=== PATIENT | female | born 1975 | race Caucasian/White ===

== ENCOUNTER → 2017-02-08 | Outpatient (CLI) | payer OTHER ==
[~2017-02-08] MED LIST: FASTIN30 MG PO; NUVARING VAG RING VG; PERCOCET 325 MG1 TA2 PO; TYLENOL 325MG325 MG PO; VITAMIN D 400400 IU PO; XARELTO15 MG PO; ZOFRAN ODT4 MG PO
== END ==
LOC: MC.RAD 10:00
DX: Z12.31 Encounter for screening mammogram for malignant neoplasm of breast (principal)

== ENCOUNTER → 2018-02-28 | Outpatient (CLI) | payer OTHER | LOC: MC.RAD 10:03 | DX: Z12.31 Encounter for screening mammogram for malignant neoplasm of breast (principal) ==

== ENCOUNTER → 2019-03-01 | Outpatient (CLI) | payer OTHER | LOC: MC.RAD 14:45 | DX: Z12.31 Encounter for screening mammogram for malignant neoplasm of breast (principal) ==

== ENCOUNTER → 2020-03-04 | Outpatient (CLI) | payer OTHER, BC | LOC: MC.RAD 08:53 | DX: Z12.31 Encounter for screening mammogram for malignant neoplasm of breast (principal) ==

== ENCOUNTER → 2020-10-07 | Outpatient (CLI) | payer OTHER | LOC: COL.RAD 10:55 | DX: M65.812 Other synovitis and tenosynovitis, left shoulder (principal); M75.52 Bursitis of left shoulder ==

== ENCOUNTER → 2022-04-23 | Outpatient (CLI) | payer OTHER | LOC: MC.RAD 12:35 | DX: N63.21 Unspecified lump in the left breast, upper outer quadrant (principal) ==